=== PATIENT | female | born 1935 | race American Indian/Alaskan Native ===

== ENCOUNTER 2016-11-10 17:07 | Outpatient (CLI) | payer MEDICARE ==
--- NOTE | 2016-11-11 11:05 | XRay Report ---
METASTATIC SURVEY:11/10/16 CLINICAL: Initial evaluation of multiple myeloma. FINDINGS: Lateral skull: Negative Cervical spine: Negative. Status post anterior cervical fusion from C5-C7. Moderate degenerative disc disease at C45. Thoracic spine: Negative. Exaggerated thoracic kyphosis but no spine fracture. Moderate degenerative change. Lumbar spine: Negative. Extensive degenerative change. Chest and ribs: Negative Bilateral humerus: Negative except for bilateral shoulder arthritis with lucencies in the humeral heads which are compatible with arthritis. The arthritis is more severe on the left. Pelvis and hips: 2 irregularly-shaped lucencies in the right iliac bone are of uncertain significance since they are not round and not typical of multiple myeloma lesions. Bilateral femur: Negative IMPRESSION: Negative except for lucencies in bilateral humeral heads which are more likely related to arthritis and lucencies of the right iliac bone which are not typical for multiple myeloma. CT of the pelvis may be more definitive.
== END 2016-11-10 17:08 | disposition home or self-care (01) ==
LOC: XRAY 17:07
PROVIDERS: ATTEND Internal Medicine Hematology & Oncology
DX: M13.812 Other specified arthritis, left shoulder (principal); M13.811 Other specified arthritis, right shoulder; M43.22 Fusion of spine, cervical region; M50.321 Other cervical disc degeneration at C4-C5 level; M40.294 Other kyphosis, thoracic region; M47.894 Other spondylosis, thoracic region; C90.00 Multiple myeloma not having achieved remission
CPT/HCPCS: 77074

== ENCOUNTER 2016-12-19 13:31 | Outpatient (CLI) | payer MEDICARE ==
[2016-12-19 14:35] LABS: Blood Urea Nitrogen 25 mg/dL (7-17)
[2016-12-19] MEDS ORDERED: NACL ONE (14:42)
--- NOTE | 2016-12-19 15:59 | Cat Scan Report ---
CT PELVIS WITH AND WITHOUT CONTRAST INDICATION: Lesion of pelvic bone. COMPARISON: 11/10/2016 bone survey. FINDINGS: CT pelvis performed before and after IV contrast. Moderate to large colonic stool partially imaged. Few distal descending colon and numerous sigmoid diverticuli. Normal appendix. Unremarkable rectum. Uterus surgically absent. Few small pelvic vascular calcifications. Nondependent air within non-opacified urinary bladder presumed iatrogenic. No free fluid or significant adenopathy. No suspicious lytic lesions noted in the right iliac bone. Moderate imaged lower lumbar spine degenerative changes as spurring and facet arthropathy. No focal suspicious abnormal enhancement. CONCLUSION: No suspicious right iliac bone lesions with various other incidental findings as hysterectomy, diverticulosis, constipation, lumbar spondylosis and presumed iatrogenic urinary bladder air, amongst others, as described. Please correlate. Thank you for the opportunity to participate in this patient's care.
== END 2016-12-19 13:32 | disposition home or self-care (01) ==
LOC: CT 13:31
PROVIDERS: ATTEND Internal Medicine Hematology & Oncology
DX: M89.9 Disorder of bone, unspecified (principal)
CPT/HCPCS: 36415; 72194; 82565; 84520; Q9967

== ENCOUNTER 2017-12-25 14:43 | Outpatient (CLI) | payer MEDICARE ==
--- NOTE | 2017-12-26 16:39 | Magnetic Resonance Report ---
MRI OF THE BRAIN AND PITUITARY WITHOUT AND WITH CONTRAST: 04/26/18 CLINICAL: Pituitary adenoma. COMPARISON: 11/07/13 TECHNIQUE: Routine whole brain sequences plus sagittal and coronal thin slice precontrast and postcontrast T1 pituitary sequences on a 1.5 Antonieta magnet. 15cc of Multihance was injected intravenously for the contrast portion of the exam. Consent was the obtained prior to the administration of contrast. FINDINGS: The ventricles and sulci are normal for age. No restricted diffusion. Mild bilateral multifocal white matter hyperintensities FLAIR and T2. The cavitary is borderline large and measures 11 x 10 x 9 mm inferior to 11 x 9 x 9 mm on the last exam. A 3 mm hypointense right pituitary lesion is identified on this exam and is consistent with a benign adenoma. The enhancement pattern was more heterogeneous on the last exam. The suprasellar cistern, optic chiasm and infundibulum of the pituitary gland appear normal. The cavernous sinuses appear normal. IMPRESSION: A 3 mm right posterior pituitary adenoma which is more convincing on this exam than on the prior exam. No significant change in the overall size of the pituitary compared to the prior exam. 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
== END 2017-12-25 14:44 | disposition home or self-care (01) ==
LOC: MRI 14:43
PROVIDERS: ATTEND Internal Medicine Endocrinology, Diabetes & Metabolism
DX: D35.1 Benign neoplasm of parathyroid gland (principal)
CPT/HCPCS: 36415; 70553; 82565; 84520; A9577

== ENCOUNTER 2018-03-20 11:50 | Outpatient (CLI) | payer MEDICARE ==
--- NOTE | 2018-03-20 15:17 | Mammography Report ---
BILATERAL DIGITAL SCREENING MAMMOGRAM with CAD: 03/20/18 11:50:00 CLINICAL: Routine screening.History of a left benign biopsy. COMPARISON:09/08/16 FINDINGS: There are bilateral scattered areas of fibroglandular density. Bilateral benign calcifications including benign vascular calcifications. Left inferior benign surgical scar. No mass, architectural distortion or suspicious calcifications. IMPRESSION: No mammographic evidence of malignancy. BI-RADS CATEGORY: 2 -- Benign RECOMMENDATION: Routine mammographic screening in one year. COMMENT: Patient follow-up letters are generated by our [employer] application.
== END 2018-03-20 11:51 | disposition home or self-care (01) ==
LOC: MAMMO 11:50
PROVIDERS: ATTEND Internal Medicine
DX: Z12.31 Encounter for screening mammogram for malignant neoplasm of breast (principal); I10 Essential (primary) hypertension
CPT/HCPCS: 77067